=== PATIENT | female | born 1970 | race Caucasian/White ===

== ENCOUNTER 2017-02-05 06:14 | Day surgery (SDC) | payer OTHER ==
[~2017-02-05] VITALS: Ht 160 cm; Wt 69.8 kg
[~2017-02-05 06:14] MED LIST: BUPR-97 PO; CeFAZolin Inj 2 GM in IV Premix 1 EACH IV ONE; ESOM20CA28 PO; Lactated Ringer's 1,000 ML IV SCH
[2017-02-05] MEDS ORDERED: Propofol 10,000 mCg/mL 20 mL Inj ONE (06:15)
[2017-02-05] MEDS ORDERED: fentaNYL-PF 50 mCg/mL 2 mL Inj ONE (06:15)
[2017-02-05] MEDS ORDERED: CeFAZolin Inj 2 gm / 50mL D5W IV ONE (06:22)
[2017-02-05] MEDS: Lactated Ringer's 1,000 ML IV SCH ×2 (06:23→08:37)
[2017-02-05 06:26] VITALS: BP 139/76; PULSE 88; RESP 16; O2SAT 96
--- NOTE | 2017-02-05 07:46 | PCM.HPANE ---
Patient Data Surgeon Admitting Provider: Attending Provider:Darron Hinkle MD Primary Care Physician:Piter Other Provider:Haley Flores Anesthesia Reason for Visit Left Lower Lip Lesion Ht/WT & BMI Height (Feet): 5 Height (Inches): 3 Weight (Kilograms): 69.8 Body Mass Index 27.00 Allergies Coded Allergies: No Known Allergies (Unverified , 01/31/17) Past Anesthesia History Anesthesia History: Denies:: Anesthesia Reactions, Malignant Hyperthermia Diabetes History Hx Diabetes?: No Medications Reported Medications Bupropion ER (Wellbutrin XL)150 Mg Tab.er.75h230 Mg PO DAILY Ref 0 01/31/17 Esomeprazole Magnesium (Nexium)20 Mg Capsule.dr20 Mg PO DAILY Ref 0 01/31/17 History History of ENT Problems?: Yes HEENT History: Positive for:: Sinus Problem (S/P RHINOPLASTY) Denture Type: None Teeth Condition: Within Normal Limits Hx of Heart Problems?: Yes Cardiovascular History: Denies:: Heart Murmur Hypertension Other Cardiac History: HX ANEMIA Hx of Respiratory Problem?: No Respiratory History: Denies:: Use of C-PAP Machine Hx Neurologic Problems?: No Hx of GI Problems?: Yes Hx of Problems?: No Female Hx: Denies:: Currently Skin History: Positive for:: History Skin Disorders? (LT LOWER LIP LESION= CURRENT PROBLEM) Denies:: Pressure Ulcers Hx Musculoskeletal Problems?: No Hx of Psycho/Social Problems?: Yes Psycho Social History: Positive for:: Anxiety Hx Depression Hx Surgeries?: Yes (ENDOMETRIAL ABLATION,RHINOPLASTY) Hx Any Other Health Problems?: Yes Other History: Denies:: Cancer Endocrine Disease Hospitalization Thyroid Disease Hx Diabetes: No Hx Alcohol Use: Yes (OCCAS)Have You Smoked inLast 12 mo: No Stop/Bang S-Snoring: Do You Snore Loudly: No T-Tired: feel tired, fatigued: No O-Obsered: Observed not breath: No P-Blood Pressure: treated: No B- Body Mass Index > 35 kg/m2: No A- Age over 50: No N- Neck Large Circumference: No G- Gender Male: No CHUY Total Score: 0 CHUY Risk Assessment: Low Risk, <3 Yes Risk Assessment Category Category 1A: Patient has history of documented sleep apnea, and HAS NOT received any narcotic, sedative or anesthesia administration during this stay. Category 1B: Patient has history of documented sleep apnea, and HAS received any narcotic , sedative or anesthesia administration during this stay Category 2: Patient has SUSPECTED Obstructive Sleep Apnea, and HAS received any narcotic , sedative or anesthesia administration during this stay. Category 3: Patient has SUSPECTED Obstructive Sleep Apnea and HAS NOT received narcotic, sedative or anesthesia administration during this stay. Category 4: Outpatient in Procedural Areas with known sleep apnea or who screen positive for High Risk via the STOP/BANG questionnaire. Exam Exam Vital Signs Vital Signs Date Time Temp Pulse Resp B/P Pulse Ox O2 Delivery O2 Flow Rate FiO2 02/05/17 06:26 36.4 88 16 139/76 96 Room Air General Appearance: Alert, Oriented X3, Cooperative, No Acute Distress HEENT/AIRWAY: MP 2 Lungs: Clear to Auscultation, Normal Air Movement Heart: Exam Unremarkable, Regular Rate/Rhythm, No Murmurs/Rubs/Gallops Meds/Labs/Diagnostics Admission Meds Current Medications Lactated Ringer's (Lr) 1,000 ml @ 120 mls/hr Q8H20M IV Last administered on t 06:23; Start 02/05/17 at 05:00; Stop 02/05/17 at 13:19 Plan Impression Patient chart reviewed, patient interviewed and anesthestic plan with risks, benefits, and alternatives discussed, and informed consent obtained. NPO per Anesth. Guidelines: Yes ASA Physical Status: ASA1 Normal Healthy Anesthetic Plan: MAC Bene/Risks/Altern/Consents: Yes HP Complete Prior to Induction: Yes Km Lino MD Feb 05, 2017 07:46
[2017-02-05] MEDS ORDERED: Lactated Ringer's 500 ML IV PRN (08:34)
[2017-02-05] MEDS ORDERED: Lactated Ringer's 1,000 ML IV SCH (08:34)
[2017-02-05] MEDS ORDERED: fentaNYL-PF 50 mCg/mL 2 mL Inj IVPUSH PRN (08:35)
[2017-02-05] MEDS ORDERED: EPHEDrine Sulfate 50 mg/mL Inj IVPUSH PRN (08:35)
[2017-02-05] MEDS ORDERED: Ondansetron 2 mg/mL 2 mL Inj IVPUSH PRN (08:35)
[2017-02-05] MEDS ORDERED: Labetalol 5 mg/mL 4 mL Inj IV PRN (08:35)
[2017-02-05] MEDS ORDERED: Dexamethasone 4 mg/mL Inj IVPUSH PRN (08:35)
[2017-02-05] MEDS ORDERED: MetoCLOpramide 5 mg/mL 2 mL Inj IVPUSH PRN (08:35)
[2017-02-05] MEDS ORDERED: Bupivacaine-MPF 0.25%/EPI 30 mL Inj INJ ONE (08:35)
[2017-02-05] MEDS ORDERED: Phenylephrine 10,000 mCg/mL Inj IVPUSH PRN (08:35)
[2017-02-05] MEDS ORDERED: HYDROmorphone 1 mg/mL Inj IVPUSH PRN (08:35)
[2017-02-05] MEDS ORDERED: Atropine 0.4 mg/mL Inj IVPUSH PRN (08:35)
[2017-02-05 09:00] VITALS: BP 124/79; PULSE 81; RESP 16; O2SAT 97
--- NOTE | 2017-02-05 09:07 | PCM.ANEP1 ---
Post Anesthesia Phase 1 PACU Phase 1 Assessment Vital Signs Vital Signs Date Time Temp Pulse Resp B/P Pulse Ox O2 Delivery O2 Flow Rate FiO2 02/05/17 09:00 81 16 124/79 97 Room Air 02/05/17 06:26 36.4 88 16 139/76 96 Room Air Anesthetic Administered: MAC Level of Alertness: Awake, talking GUARDADO's with Equal Strength: Yes Pain: No Nausea or Vomiting: No Cardiovascular Function and Hy: Yes Oxygen Delivery: Room Air Lungs: Clear to Auscultation, Normal Air Movement Km Lino MD Feb 05, 2017 09:07
[2017-02-05 09:32] VITALS: BP 129/72; PULSE 80; RESP 16; O2SAT 99
[2017-02-05 09:50] VITALS: BP 137/75; PULSE 83; RESP 16; O2SAT 98
--- NOTE | 2017-02-06 13:25 | PATH ---
SURGICAL PATHOLOGY Attending Physician:Darron Hinkle CASE STATUS: Signed Out PATIENT NAME: ALEK BARBOZA PID: [id number] : 1970 DATE COLLECTED:02/05/2017 16:24 SPECIMEN: Skin, biopsy CLINICAL HISTORY: 1. LEFT LOWER LIP LESION FINAL DIAGNOSIS: 1.LEFT LOWER LIP LESION: SOLAR CHEILITIS WITH ULCERATION. NO EVIDENCE OF MALIGNANCY. ICD10 CODE L57.0 GROSS DESCRIPTION: The specimen is received in one formalin filled container labeled with the patient's name, sublabeled "left lower lip lesion" and consists of 4 pink-bates to alcazar-redd portions of tissue which aggregate to 0.5 x 0.4 x 0.3 CM. The specimen is inked blue and entirely submitted in one cassette. 02/05/2017 DAC MICRO DESCRIPTION: See diagnosis. ICD-9 CODES: CPT CODES: 1: 19729 Electronically Signed Out Joan Lim MD [facility] Pathology [facility] [address], [place] [address] Technical component performed at [facility], [facility] [address], [place], [address]
--- NOTE | 2017-02-06 21:23 | OP ---
[address] [address] OPERATIVE REPORT PATIENT: ALEK BARBOZA : 1970 MR#: [id number] ADMIT: 02/05/2017 JOB ID: [id number] DATE OF SURGERY: 02/05/2017 PREOPERATIVE DIAGNOSIS(ES): Left lower lip lesion. POSTOPERATIVE DIAGNOSIS(ES): Left lower lip lesion, 5 mm. PROCEDURE: 1. Excision of left lower lip lesion. 2. Simple closure of left lower lip defect including mucosa and skin 1 cm. SURGEON: Darron Hinkle MD. CHUMMER: None. ANESTHESIA: MAC with local. COMPLICATIONS: None apparent. SPECIMEN: Left lower lip lesion to Pathology. INDICATIONS FOR PROCEDURE: This is a 46-year-old female patient with a left lower lip lesion that is protuberant, pedunculated and easily bleeds. At this point, excision is indicated for tissue diagnosis. PROCEDURE AND FINDINGS: The patient was identified in the preoperative area. Surgical site was marked. The patient was then taken back to the operating room and placed supine on the operating table. Appropriate time-outs were taken. MAC was induced smoothly. The patient was then prepped and draped in the usual sterile manner. Local anesthesia was then infiltrated to the left lower lip surgical site consisting of 1% lidocaine, 0.25% Marcaine with epinephrine. It was noted that the lesion was approximately 4-5 mm in diameter and pedunculated with a narrow neck. The lesion was then planed off of the surface of the lip and passed off to Pathology as a specimen. It was noted that once the pedunculated portion of the lesion was removed, the neck was approximately 2 mm in diameter. The ellipse was then designed to encompass the neck of the lesion with a small amount of normal-appearing mucosa. Incision was deepened down to the underlying orbicular nisha muscle. The ellipse of skin and the lesion was elevated off of the orbicular nisha muscle and passed off to Pathology as a specimen. The base of the wound was examined and there was evidence of any residual lesion. The incision was then reapproximated with several 5-0 chromic gut simple interrupted sutures at the mucosal portion of the incision. The incision did extend past the white roll and onto the cutaneous portion of the lip. The cutaneous portion of the lip was reapproximated with two 5-0 Prolene simple interrupted sutures. The patient tolerated the procedure well. Needle count, sponge count, instrument counts were correct at the end of the procedure. The patient was extubated and transported to recovery in stable condition.
== END 2017-02-05 23:59 | disposition home or self-care (01) ==
LOC: SAS 06:14
PROVIDERS: ATTEND Plastic Surgery
PROC: 0CB1XZX Excision of Lower Lip, External Approach, Diagnostic (ICD-10-PCS; principal; 2017-02-05 08:30)
DX: K13.0 Diseases of lips (principal)
CPT/HCPCS: 40490; 88305; J0690; J2250; J3010; J7120